=== PATIENT | female | born 1970 | race Caucasian/White ===

== ENCOUNTER 2023-10-01 18:56 | Emergency (ER) | payer OTHER, SELFPAY ==
[2023-10-01 18:57] VITALS: BP 128/69; PULSE 78; RESP 16; TEMP 36.6; O2SAT 98; BMI 23.9
[2023-10-01 20:57] LABS: Absolute Lymphocyte Count 1.77 X10^3/uL (0.83-4.51); Absolute Neutrophil Count 3.2 X10^3/uL (2.0-7.7); Basophil# 0.02 X10^3/uL; Basophil% 0.4 % (0-1); Eosinophil# 0.09 X10^3/uL; Eosinophils% 1.6 % (0-5); Hematocrit 40.3 % (37-47); Hemoglobin 13.1 g/dL (12.0-15.0); Lymphocyte # 1.77 X10^3/ul (0.83-4.51); Lymphocyte % 32.3 % (19-41); Mean Corp Hgb Conc 32.5 g/dL (32-36); Mean Corpuscular Hgb 31.6 pg (27.0-32.0); Mean Corpuscular Volume 97.1 fL (81-99); Mean Platelet Vol. 9.2 fl (6.2-12.0); Monocyte# 0.41 X10^3/uL; Monocyte% 7.5 % (0-10); NRBC Flagged by Analyzer 0 % (0-5); Neutrophil # 3.18 X10^3/uL (2.7-7.7); Platelet Count 233 K/mm3 (150-450); RBC Distribution Width CV 12.4 % (11.6-14.6); RBC Distribution Width SD 44.4 fl (35.1-43.9); Red Blood Count 4.15 M/mm3 (4.2-5.4); White Blood Count 5.5 K/mm3 (4.4-11.0)
[2023-10-01 21:29] VITALS: BP 128/65; PULSE 46; RESP 18; TEMP 36.9; O2SAT 99
[2023-10-01 21:31] LABS: ALB/GLOB Ratio 0.9 RATIO (0.9-2.4); AST(SGOT) 21 U/L (15-37); Alanine Aminotransfer ALT/SGPT 21 U/L (13-56); Albumin, Serum 3.7 g/dL (3.2-5.0); Alkaline Phosphatase 73 U/L (45-117); Anion Gap 8 (5-15); BUN 26 mg/dL (7-18); BUN/Creat Ratio 27.4 RATIO (10-20); Calcium,Total 10.3 mg/dL (8.5-10.1); Chloride 106 mmol/L (98-107); Creatinine, Serum 0.95 mg/dL (0.55-1.02); EST Glomerular Filtration Rate 65 mL/min (>60); Est Glom Filt Rate - Afr Amer 79 mL/min (>60); Estimated Creatinine Clearance 65.83 ml/min; Globulin 3.9 g/dL (2.2-4.2); Glucose 76 mg/dL (74-106); Lipase 47 U/L (13-75); Protein, Total 7.6 g/dL (6.4-8.2); Sodium Level 139 mmol/L (136-145)
--- NOTE | 2023-10-01 21:50 | EDS_ITS ---
HPI History of Present Illness Chief Complaint: Abd Pain Detail of Chief Complaint: Periumbilical pain and drainage from old/remote umbilical incision. Informant: patient Onset/Context/Timing Onset: Month(s) Context: Gradual Onset Timing: Continuous and Waxes and wanes Quality: Periumbilical pain Location: Periumbilical Current Severity: Mild Maximum Severity: Moderate Worsened by: Nothing specific Relieved by: Nothing Associated Symptoms Associated Symptoms: Nausea and drainage from laparoscopic incision infraumbilical secondary to Narrative Narrative: patient is a 53-year-old woman. She has multiple food allergies. She reports history of inflammatory bowel disorder. She has gone a functional medicine/holistic medicine approach. She is on no medication. She denies fever, chills night sweats. She denies cough, shortness of breath difficulty breathing. She does report periumbilical pain has been present for months. There is no tr nury exacerbating, precipitating or alleviating factors. Patient contacted other doctors of the functional medicine holistic medicine [facility] Medical History (Updated 10/01/23 @ 22:[address] Corwin Mendoza MD) Inflammatory bowel disease Endometriosis determined by laparoscopy Home Medications ?Medication ?Instructions ?Recorded ?Last Taken ?Type Ginseng 03/15/16 Unknown History Astragalus 03/15/16 Unknown History Dong Quai 03/15/16 Unknown History Allergy/AdvReac Type Severity Reaction Status Date / Time barley Allergy Severe Anaphylaxis Verified 10/01/23 19:03 latex Allergy Severe Anaphylaxis Verified 10/01/23 19:03 melon Allergy Severe Anaphylaxis Verified 10/01/23 19:03 milk Allergy Severe Anaphylaxis Verified 10/01/23 19:03 pineapple Allergy Severe Anaphylaxis Verified 10/01/23 19:03 rye grass Allergy Severe Anaphylaxis Verified 10/01/23 19:03 wheat Allergy Severe Anaphylaxis Verified 10/01/23 19:03 egg Allergy Other Verified 10/01/23 19:03 gluten Allergy Unknown Verified 10/01/23 19:03 lactase (From Dairy Aid) Allergy Other Verified 10/01/23 19:03 sodium Allergy Other Verified 10/01/23 19:03 Social History Smoking Status: Never smoker ROS ROS ED Constitutional Constitutional ED: Denies chills, fever(s), subjective, sweats or weight loss Eyes Eyes: Denies blurry vision, change in vision or diplopia ENT ENT ED: Denies ear pain, rhinorrhea or sore throat Cardiovascular Cardiovascular: Denies chest pain, palpitations or racing heartbeat Respiratory/Chest Respiratory/Chest: Denies cough, dyspnea or dyspnea on exertion Gastrointestinal Gastrointestinal: Reports abdominal pain and other Details: Drainage from umbilical laparoscopic incision site ; Denies constipation, diarrhea, melena, nausea or vomiting Genitourinary Genitourinary ED: Denies dysuria, hematuria or urinary frequency Musculoskeletal Musculoskeletal: Denies arthralgias, back pain, myalgias or neck pain Integumentary Denies abscess, Abrasions or rash Neurologic Neurologic: Denies headache(s) Endocrine Endocrinology: Denies cold intolerance or heat intolerance Hematologic/Lymphatic Hematologic/Lymphatic: Reports systems reviewed and no addt'l complaints, except as documented EXAM Physical Exam Const Vital Signs: 10/01/23 18:57 10/01/23 21:29 Temperature 98 F 98.4 F Temperature Source Oral Oral Pulse Rate 78 46 L Respiratory Rate 16 18 Blood Pressure 128/69 H 128/65 H Blood Pressure Mean 88 86 Pulse Ox 98 99 Oxygen Delivery Method Room Air Room Air Positive well nourished and well developed General Appearance ED: well developed and NAD; Negative for cyanotic or diaphoretic HEENT Reports moist mucous membranes HEENT Narrative: Head is atraumatic normocephalic. Ears normal. Eyes PERRL and EOMs intact bilaterally General Eye ED: Negative for pale conjunctiva or scleral icterus Neck no lymphadenopathy, supple and no JVD Resp normal respiratory effort and clear to auscultation bilaterally Cardio regular rate, regular rhythm, S1 normal heart sound, S2 normal heart sound and no murmurs GI normal to inspection, nondistended, normoactive bowel sounds, non-tender, non- distended and no masses; Negative for hepatosplenomegaly GI Narrative: Patient has a negative clinical Tamayo sign. Palpation: soft Back/Spine no CVA tenderness Extremity normal to inspection General Extremety ED: Negative for edema or tenderness General Extremity: Negative for edema Neuro oriented x3 and CN's II-XII intact bilaterally Sensorium / Orientation: alert Psych mental status grossly normal Skin no rashes or lesions noted, no wounds and skin turgor normal General Skin Exam: Negative for elasticity normal MDM MDM MDM Narrative Medical decision making narrative: Differential diagnosis pain of unknown etiology, with regards to the umbilical incision site there is no erythema, warmth, induration or drainage. There is no evidence umbilical hernia either. Because there was concern for gallbladder liver profile and lipase were obtained and these were normal. Because of concern for infection CBC was obtained and is normal with a normal differential. She is not anemic. Lab Data Attestation: I reviewed the patient's lab results. Labs: Laboratory Results - last 24 hr 10/01/23 20:50 WBC 5.5 RBC 4.15 L Hgb 13.1 Hct 40.3 MCV 97.1 MCH 31.6 MCHC 32.5 RDW Std Deviation 44.4 H RDW Coeff of Catina 12.4 Plt Count 233 MPV 9.2 Immature Gran % (Auto) 0.200 Neut % (Auto) 58.0 Lymph % (Auto) 32.3 [place] % (Auto) 7.5 Eos % (Auto) 1.6 Baso % (Auto) 0.4 Absolute Neuts (auto) 3.2 Absolute Lymphs (auto) 1.77 Nucleated RBC % 0 Sodium 139 Potassium 4.0 Chloride 106 Carbon Dioxide 25.0 Anion Gap 8 BUN 26 H Creatinine 0.95 Estim Creat Clear Calc 65.83 Est GFR (MDRD) Af Amer 79 Est GFR (MDRD) Non-Af 65 BUN/Creatinine Ratio 27.4 H Glucose 76 Calcium 10.3 H Total Bilirubin 0.40 AST 21 ALT 21 Alkaline Phosphatase 73 Total Protein 7.6 Albumin 3.7 Globulin 3.9 Albumin/Globulin Ratio 0.9 Lipase 47 Discharge Plan Triage Chief Complaint: Abd Pain ED Provider: Corwin Mendoza Dx/Rx/DC Orders Clinical Impression: Chronic periumbilical pain, Hx of inflammatory bowel disease, Hx of endometriosis Instructions: ED Abdominal Pain Unkn Cause Fem Prescriptions: No Action Ginseng Astragalus [place] Primary Care Provider: VAISHALI CEBALLOS Referrals: VAISHALI CEBALLOS [Other] - As Needed Print Language: [place] Island[place] Disposition Disposition: Home, Self Care
== END 2023-10-01 22:44 | disposition home or self-care (01) ==
PROVIDERS: Emergency Provider Emergency Medicine; Visit Provider Emergency Medicine
DX: R10.33 Periumbilical pain (principal); G89.29 Other chronic pain; R11.0 Nausea
CPT/HCPCS: 80053; 83690; 85025; 99283; A4216